=== PATIENT | female | born 1980 | race Two or more races ===

== ENCOUNTER → 2025-08-20 | Outpatient (CLI) | payer OTHER, SELFPAY ==
--- NOTE | 2025-08-20 15:59 | XR_ITS ---
EXAMINATION: Ankle, left 3 views . Technique: Ankle AP, oblique, lateral 3 views Date and time of exam: August 20, 2025 1603 hours INDICATIONS: Ankle pain today. FINDINGS: No fracture or dislocation. No significant arthritic change IMPRESSION: No fracture. No significant arthritic change
== END | disposition home or self-care (01) ==
PROVIDERS: PCP Family Medicine; Referring Provider Physician Assistant; Visit Provider Physician Assistant
DX: M25.572 Pain in left ankle and joints of left foot (principal)
CPT/HCPCS: 73610